=== PATIENT | female | born 1940 | race Caucasian/White ===

== ENCOUNTER → 2021-04-07 10:37 | Outpatient (CLI) | payer MEDICARE, SELFPAY ==
[2021-04-07 19:36] LABS: Hemoglobin A1C% w Est Avg Glu 5.4 % (4.0-6.0)
== END ==
PROVIDERS: PCP Family Medicine; Visit Provider Family Medicine
DX: R73.03 Prediabetes
CPT/HCPCS: 83036

== ENCOUNTER → 2021-12-27 11:09 | Outpatient (CLI) | payer MEDICARE, OTHER, SELFPAY ==
[2021-12-27 19:55] LABS: Cholesterol 275 mg/dL (140-199); HDL Cholesterol 83 mg/dL (40-60); LDL Cholesterol Calculated 175 mg/dL (<100); Triglycerides 86 mg/dL (35-150)
== END ==
PROVIDERS: PCP Physician Assistant; Visit Provider Physician Assistant
DX: E78.5 Hyperlipidemia, unspecified (principal)
CPT/HCPCS: 80061

== ENCOUNTER 2022-01-10 11:32 | Emergency (ER) | payer MEDICARE, OTHER, SELFPAY ==
[2022-01-10 11:50] VITALS: BP 132/63; PULSE 67; RESP 14; TEMP 36.8; O2SAT 95; BMI 27.1
--- NOTE | 2022-01-10 11:58 | DI.US.S_ITS ---
PROCEDURE: US PERIPH VENOUS LOW EXTREM LT INDICATIONS: swelling and pain left lower leg TECHNIQUE: Real-time imaging, as well as color and pulse Doppler interrogation, were performed of the lower extremity deep veins from the inguinal ligament to the popliteal fossa. COMPARISON: None. FINDINGS: The common femoral, femoral and popliteal veins are normally compressible, and free of intraluminal thrombus. Color and pulse Doppler demonstrate normal phasic intraluminal flow. There is normal augmentation response to distal compression maneuver. IMPRESSION: No deep venous thrombosis. Dictated by: Zohra Braga M.D. on 01/10/2022 at 12:37 Approved by: Zohra Braga M.D. on 01/10/2022 at 12:37
--- NOTE | 2022-01-10 12:01 | ED.EXTPRO ---
HPI - Extremity Problem General Chief complaint: Extremity Problem,Nontraumatic Stated complaint: Swollen left foot Time Seen by Provider: 01/10/22 11:54 Source: patient Mode of arrival: Ambulatory History of Present Illness HPI Narrative: 81-year-old female nonsmoker with history of hyperlipidemia and osteoporosis presents at the request of her primary care provider for evaluation of painful, swollen left foot in the absence of obvious injury. She has had no fever or chills, describes no calf pain, swelling or redness and no thigh pain, swelling or redness. She has no chest pain or shortness of breath. She had a surgery on her right shoulder in the end of October and is otherwise largely free of complaint. She denies any history of blood clots. She has a family member that works in an emergency room and after looking at pictures encouraged her to become evaluated Related Data Home Medications Medication Instructions Recorded Confirmed Fish Oil 1,000 mg PO QDAY ##0 07/20/11 03/22/21 GLUCOS/MSM/COLG II/C/MAN/HRB21 1 cap PO TID ##0 07/20/11 03/22/21 (Glucosamine-MSM Complex Cap) [VITAMIN D3] 1 tab PO QDAY ##0 07/20/11 03/22/21 multivitamin (Multiple Vitamins ##0 01/22/17 03/22/21 tablet) mecobalamin (vitamin B12) PO 03/09/21 03/22/21 Previous Rx's Medication Instructions Recorded cetirizine 10 mg tablet (Zyrtec) 10 mg PO DAILY PRN allergy 10/14/21 symptoms #30 tabs fluticasone propionate 50 1 spray intranasal DAILY #16 grams 10/14/21 mcg/actuation nasal spray,suspension (Flonase Allergy Relief) simvastatin 20 mg tablet 20 mg PO DAILY #90 tabs 10/14/21 cephalexin 500 mg capsule 500 mg PO Q6H 7 days #28 caps 01/10/22 Allergies Allergy/AdvReac Type Severity Reaction Status Date / Time adhesive [ADHESIVE] Allergy Severe BLISTERS/RA Verified 01/10/22 11:58 SH Penicillins [PENICILLINS] Allergy Mild UNKNOWN Verified 01/10/22 11:58 petrolatum,white Allergy Mild SKIN Verified 01/10/22 11:58 [From PETROLEUM JELLY] IRRITATION Sulfa (Sulfonamide Allergy Mild HALLUCINATI Verified 01/10/22 11:58 Antibiotics) ONS [SULFA (SULFONAMIDE ANTIBIOTICS)] Review of Systems Review of Systems Narrative: GENERAL: Denies chills, fatigue, malaise, fever, sweats. HEENT: Denies sinus pain, ear pain, sore throat, difficulty swallowing, dizziness. RESPIRATORY: Denies dyspnea, cough, wheezing, hemoptysis, sputum. CARDIOVASCULAR: Denies chest pain, palpitations, orthopnea, edema, GASTROINTESTINAL: Denies nausea, vomiting, abdominal pain, diarrhea, constipation, melena. : Denies dysuria, frequency, incontinence, hematuria, urinary retention. MUSCULOSKELETAL: See HPI SKIN: See HPI NEUROLOGIC: Denies weakness, headache, numbness, change in speech, confusion, seizures, incoordination. PSYCHIATRIC: No concerning psychosocial issues. 12 point review of systems is negative except for those stated above Patient History Medical History History of abnormal mammogram Surgical History History of knee replacement Family History Father Heart disease Grandmother Heart disease High cholesterol Mother Cancer Social History Smoking Status: Never smoker Smoking Status: Never smoker alcohol intake frequency: holidays/special occasions only Substance Use Type: does not use Exam Narrative Exam Narrative: GENERAL: [81] year old patient appears stated age. Well-developed patient, in mild distress. HEAD: Atraumatic. Normocephalic. EYES: Pupils equal round and reactive. Extraocular motions intact. No scleral icterus. No injection or drainage. ENT: Nose without bleeding, purulent drainage. Throat without erythema, tonsillar hypertrophy or exudate. Airway patent. NECK: Trachea midline. Non tender CARDIOVASCULAR: Regular rate and rhythm without murmurs, gallops, or rubs. RESPIRATORY: Clear to auscultation. Breath sounds equal bilaterally. No wheezes, rales, or rhonchi. GASTROINTESTINAL: Abdomen soft, non-tender, nondistended. EXTREMITIES: R shoulder in post operative sling. L foot with minimal swelling and warmth. NO calf pain, swelling, erythema, no medial thight pain or swelling BACK: Nontender without deformity or crepitance. No flank tenderness. NEURO: AOx3. SKIN: No rash or erythema of visible areas Initial Vital Signs Initial Vital Signs: Vital Signs Temperature 98.3 F 01/10/22 11:50 Pulse Rate 67 01/10/22 11:50 Respiratory Rate 14 01/10/22 11:50 Blood Pressure 132/63 01/10/22 11:50 Pulse Oximetry 95 01/10/22 11:50 Oxygen Delivery Method 01/10/22 11:50 Course Orders Ordered: ED Orders 01/10/22 11:58 perip venous low extrem lt Stat Vital Signs Vital signs: Vital Signs - 8 hr 01/10/22 11:50 Temperature 98.3 F Pulse Rate 67 Respiratory Rate 14 Blood Pressure 132/63 Pulse Oximetry 95 Oxygen Delivery Method Room Air Discharge Plan Departure Patient Disposition: Home Clinical Impression: Cellulitis of foot, left Instructions: DI for Cellulitis -- Adult Activity Restrictions/Additional Instructions: *You have been diagnosed with [left foot redness and swelling, no evidence of blood clot, as we discussed we will treat for infection, particularly given your recent procedures] *What to do: *Please continue to take your regular medications as directed. [ x] New medication prescriptions sent to your pharmacy: [ [facility]] [ ] New medication written as a paper prescription [ ] No new medications given *Please follow up with your primary care provider in 2-3 days, call for an appointment. Let them know you were seen in the Emergency Department and that we ask that you be seen in follow up. We will electronically transmit a record of today's note if your PCP is in our system *If you do not have a primary care provider please contact the [facility] Resource line at [phone]. They will ask some questions about your medical history and help get you set up with a doctor in the community. *Return to Emergency Department if you should have any new, worsening or concerning symptoms, such as [fever greater than 101 F, shaking chills, worsening pain, persistent vomiting or other bothersome symptoms] Prescriptions: New cephalexin 500 mg capsule 500 mg PO Q6H 7 Days Qty: 28 0RF No Action Fish Oil 1,000 mg PO QDAY Qty: 0 GLUCOS/MSM/COLG II/C/MAN/HRB21 (Glucosamine-MSM Complex Cap) 1 cap PO TID Qty: 0 [VITAMIN D3] 1 tab PO QDAY Qty: 0 multivitamin [Multiple Vitamins] tablet Qty: 0 mecobalamin (vitamin B12) PO fluticasone propionate [Flonase Allergy Relief] 50 mcg/actuation spray,suspension 1 spray intranasal DAILY Qty: 16 1RF Rx Instructions: administer into each nostril cetirizine [Zyrtec] 10 mg tablet 10 mg PO DAILY PRN (Reason: allergy symptoms) Qty: 30 2RF simvastatin 20 mg tablet 20 mg PO DAILY Qty: 90 3RF Referrals: Kian Meyer MD [Primary Care Provider] - Visit Report Forms: Patient Portal/API
[2022-01-10 13:08] VITALS: BP 141/65; PULSE 60; RESP 18; O2SAT 96
== END 2022-01-10 13:08 | disposition home or self-care (01) ==
PROVIDERS: Emergency Provider Emergency Medicine; PCP Family Medicine
DX: L03.116 Cellulitis of left lower limb (principal)
CPT/HCPCS: 93971; 99281; 99283

== ENCOUNTER → 2022-09-14 14:44 | Outpatient (CLI) | payer MEDICARE, OTHER, SELFPAY | PROVIDERS: PCP Family Medicine; Referring Provider Family Medicine; Visit Provider Family Medicine | DX: Z13.820 Encounter for screening for osteoporosis (principal); M85.851 Other specified disorders of bone density and structure, right thigh; Z78.0 Asymptomatic menopausal state; E78.5 Hyperlipidemia, unspecified; R00.1 Bradycardia, unspecified; Z87.898 Personal history of other specified conditions | CPT/HCPCS: 77080 ==

== ENCOUNTER → 2023-01-02 10:52 | Outpatient (CLI) | payer MEDICARE, OTHER, SELFPAY ==
[2023-01-02 19:53] LABS: Add Manual Diff / Slide Review NO; Basophils Absolute Auto 0 /uL (0-100); Basophils Percent Auto 0.4 % (0-2); Eosinophils Absolute Auto 500 /uL (0-450); Eosinophils Percent Auto 9.7 % (2-4); Hematocrit 39.9 % (36-46); Hemoglobin 13.4 g/dL (12.0-16.0); Lymphocytes Absolute Auto 1900 /uL (1100-4500); Lymphocytes Percent Auto 38.6 % (25-40); Mean Corpuscular HGB Conc 33.5 % (30-36); Mean Corpuscular Hemoglobin 29.6 PG (26-34); Mean Corpuscular Volume 88.5 fL (80-100); Monocytes Absolute Auto 400 /uL (0-900); Monocytes Percent Auto 7.3 % (3-14); Neutrophils Absolute Auto 2200 /uL (1500-7000); Platelet Count 221 X10^3/uL (150-400); Red Blood Cell Count 4.51 X10^6/uL (4.0-5.2); Red Cell Distribution Width 14.4 % (11.6-14.8); White Blood Cell Count 5.1 X10^3/uL (4.5-11.0)
[2023-01-02 20:08] LABS: Alanine Aminotransferase 24 IU/L (<35); Albumin 3.9 g/dL (3.5-5.0); Albumin Globulin Ratio 1.4 (1.0-2.8); Alkaline Phosphatase 62 U/L (38-126); Aspartate Aminotransferase 33 IU/L (14-36); BUN Creatinine Ratio 24.4 (6-22); Bilirubin Total 0.4 mg/dL (0.2-1.3); Blood Urea Nitrogen 20 mg/dL (7-17); Calcium 9.4 mg/dL (8.4-10.2); Carbon Dioxide 28 mmol/L (22-32); Chloride 103 mmol/L (98-107); Cholesterol 190 mg/dL (140-199); Estimated Glomerular Filt Rate > 60 mL/min (>60); Globulin 2.7 g/dL (1.7-4.1); Glucose 99 mg/dL (80-110); HDL Cholesterol 81 mg/dL (40-60); HEMOLYSIS < 15 (0-50); LDL Cholesterol Calculated 96 mg/dL (<100); Potassium 4.5 mmol/L (3.4-5.1); Sodium 137 mmol/L (137-145); Total Protein 6.6 g/dL (6.3-8.2); Triglycerides 63 mg/dL (35-150)
== END ==
PROVIDERS: PCP Family Medicine; Visit Provider Family Medicine
DX: Z87.898 Personal history of other specified conditions (principal); E78.5 Hyperlipidemia, unspecified; M81.8 Other osteoporosis without current pathological fracture; R00.1 Bradycardia, unspecified
CPT/HCPCS: 80053; 80061; 84443; 85025

== ENCOUNTER 2023-02-10 23:19 | Emergency (ER) | payer MEDICARE, OTHER, SELFPAY ==
[2023-02-10 23:37] VITALS: BP 139/66; PULSE 58; RESP 18; TEMP 36.6; O2SAT 97; BMI 24.4
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
--- NOTE | 2023-02-11 00:37 | DI.CT.S_ITS ---
PROCEDURE: CT CERVICAL SPINE WO CON INDICATIONS: trauma TECHNIQUE: Noncontrast 3 mm thick sections acquired from the skull base to the T4 level. Sagittal and coronal reformats were then constructed. For radiation dose reduction, the following was used: automated exposure control, adjustment of mA and/or kV according to patient size. COMPARISON: [facility], XR CERVICAL SPINE 2V OR 3V, 02/28/2022, 12:17. FINDINGS: Image quality: Excellent. Bones: No fractures or dislocations. Visualized superior ribs are intact. Note is made of moderately severe degenerative disc disease at C5-6, previously present. Soft tissues: Prevertebral soft tissues are normal in thickness. No paravertebral hematomas. No apical pneumothoraces. IMPRESSION: No acute trauma found, no cervical malalignment present. Moderately severe degenerative disc disease C5-6, previously present on plain film imaging 02/28/22. Dictated by: Antoine Camacho M.D. on 02/11/2023 at 1:34 Approved by: Antoine Camacho M.D. on 02/11/2023 at 1:35
--- NOTE | 2023-02-11 00:37 | DI.CT.S_ITS ---
PROCEDURE: CT HEAD/BRAIN WO CON INDICATIONS: trauma TECHNIQUE: Noncontrast 4.5 mm thick angled axial sections acquired from the foramen magnum to the vertex, with coronal and sagittal reformats. For radiation dose reduction, the following was used: automated exposure control, adjustment of mA and/or kV according to patient size. COMPARISON: None. FINDINGS: Image quality: Excellent. CSF spaces: Basal cisterns are patent. No extra-axial fluid collections. The ventricles are symmetric in size and shape. Brain: No intracranial bleeds or masses. There is cerebral volume loss for age, with resultant ventricular and sulcal prominence. There are periventricular and deep white matter chronic small vessel ischemic changes. There is intracranial internal carotid artery atherosclerosis. Skull and face: Calvarium and visualized facial bones appear intact except for previously identified bilateral nasal bone fractures, minimally displaced. Sinuses: Visualized sinuses and mastoids are clear except for a small air-fluid level within the left maxillary sinus associated with a previously identified set of bilateral nasal bone fractures.. IMPRESSION: Bilateral nasal bone fractures, no skull fracture or brain injury is seen. Dictated by: Antoine Camacho M.D. on 02/11/2023 at 1:36 Approved by: Antoine Camacho M.D. on 02/11/2023 at 1:38
[2023-02-11] MEDS: ACETAMINOPHEN 325 MG TABLET 650 MG PO (05:29)
[2023-02-11 05:32] VITALS: BP 118/72; PULSE 68; RESP 16; TEMP 36.4; O2SAT 98
== END 2023-02-11 05:34 | disposition home or self-care (01) ==
PROVIDERS: Emergency Provider Emergency Medicine; PCP Family Medicine
DX: S02.2XXA Fracture of nasal bones, initial encounter for closed fracture (principal); H11.32 Conjunctival hemorrhage, left eye; S40.012A Contusion of left shoulder, initial encounter; S05.12XA Contusion of eyeball and orbital tissues, left eye, initial encounter; V94.0XXA Hitting object or bottom of body of water due to fall from watercraft, initial encounter
CPT/HCPCS: 70450; 70486; 72125; 99283; 99284

== ENCOUNTER → 2024-05-28 15:31 | Outpatient (CLI) | payer MEDICARE, OTHER, SELFPAY ==
--- NOTE | 2024-05-28 15:37 | DI.RAD.S_ITS ---
PROCEDURE: XR KNEE RT 4V INDICATIONS: KNEE PAIN TECHNIQUE: Four views of the knee were acquired. COMPARISON: None. FINDINGS: Bones: There are no osseous abnormalities. Joints: Severe patellofemoral degeneration noted. There is moderate tibial femoral degeneration with heavy chondrocalcinosis in the tibial femoral joint including menisci and chondral cartilages. Mild lateral subluxation of patella noted.. Soft tissues: Normal IMPRESSION: Severe patellofemoral and moderate tibiofemoral degeneration. Chondrocalcinosis. Patella Obdulia and lateral subluxation of the patella. Dictated by: Buddy Renteria M.D. on 05/29/2024 at 12:11 Approved by: Buddy Renteria M.D. on 05/29/2024 at 12:13
== END ==
PROVIDERS: PCP Family Medicine; Referring Provider Orthopaedic Surgery; Visit Provider Orthopaedic Surgery
DX: S83.011A Lateral subluxation of right patella, initial encounter (principal); M11.261 Other chondrocalcinosis, right knee; M25.561 Pain in right knee
CPT/HCPCS: 73564

== ENCOUNTER → 2024-07-09 15:04 | Outpatient (CLI) | payer MEDICARE, OTHER, SELFPAY ==
--- NOTE | 2024-07-09 15:05 | DI.RAD.S_ITS ---
PROCEDURE: XR DEXA AXIAL SKELETON INDICATIONS: osteoporosis COMPARISON: [facility], CR, XR DEXA AXIAL SKELETON, 09/14/2022, 15:07. FINDINGS: Lumbar Spine: Bone mineral density 1.050 g/cm2, T score 0.0, increased by 4.3 percent. Left Hip: Bone mineral density 0.719 g/cm2, T score -1.8, decreased by 6.9 percent. Left Femoral Neck: Bone mineral density 0.556 g/cm2, T score -2.6. Right Hip: Bone mineral density 0.716 g/cm2, T score -1.9, decreased by 3.9 percent. Right Femoral Neck: Bone mineral density 0.587 g/cm2, T score -2.4. Fracture Risk Calculation (when applicable): 10-year fracture risk of a major osteoporotic fracture 20 percent and of a hip fracture 7.2 percent. (T score greater or equal to -1.0 to: NORMAL) (T score from -1.1 to -2.4: OSTEOPENIA) (T score less than or equal to -2.5: OSTEOPOROSIS) IMPRESSION: Osteoporosis by WHO classification. Follow-up guidelines as follows: Osteoporosis: Consider a repeat DEXA and Vertebral Fracture Assessment (VFA) exam in 2 years or sooner if medically necessary, to reassess this patient's status. Osteopenia: Consider a repeat DEXA in 2-3 years to reassess this patient's status, or if there is a new clinical indication. Normal: Consider a repeat DEXA in 5 years or sooner, or if there is a new clinical indication. All treatment decisions require clinical judgment and consideration of individual patient factors, including patient preferences, comorbidities, previous drug use, risk factors not captured in the FRAX model (e.g., frailty, falls, vitamin D deficiency, increased bone turnover, interval significant decline in bone density ) and possible under- or over-estimation of fracture risk by FRAX. In addition, the NOF Guide recommends that FDA-approved medical therapies be considered in postmenopausal women and men age >= 50 years with a: * Hip or vertebral (clinical or morphometric) fracture * T-score of <=-2.5 at the spine or hip * Ten-year fracture probability by FRAX of >= 3% for hip fracture or >=20% for major osteoporotic fracture. People with diagnosed cases of osteoporosis or at high risk for fracture should have regular bone mineral density tests. For patients eligible for Medicare, routine testing is allowed once every 2 years. The testing frequency can be increased to one year for patients who have rapidly progressing disease, those who are receiving or discontinuing medical therapy to restore bone mass, or have additional risk factors. Dictated by: Vlad Garcia M.D. on 07/10/2024 at 9:06 Approved by: Vlad Garcia M.D. on 07/10/2024 at 9:07
== END ==
PROVIDERS: PCP Family Medicine; Referring Provider Family Medicine; Visit Provider Family Medicine
DX: Z78.0 Asymptomatic menopausal state (principal); M81.0 Age-related osteoporosis without current pathological fracture
CPT/HCPCS: 77080

== ENCOUNTER → 2024-07-10 11:01 | Outpatient (CLI) | payer MEDICARE, OTHER, SELFPAY ==
[2024-07-10 19:49] LABS: Add Manual Diff / Slide Review NO; Basophils Absolute Auto 0 /uL (0-100); Basophils Percent Auto 0.3 % (0-2); Eosinophils Absolute Auto 400 /uL (0-450); Eosinophils Percent Auto 7.3 % (2-4); Hematocrit 39.8 % (36-46); Hemoglobin 13.2 g/dL (12.0-16.0); Lymphocytes Absolute Auto 1900 /uL (1100-4500); Lymphocytes Percent Auto 34.6 % (25-40); Mean Corpuscular HGB Conc 33.2 % (30-36); Mean Corpuscular Hemoglobin 29.9 PG (26-34); Mean Corpuscular Volume 89.8 fL (80-100); Monocytes Absolute Auto 300 /uL (0-900); Monocytes Percent Auto 6.3 % (3-14); Neutrophils Absolute Auto 2800 /uL (1500-7000); Neutrophils Percent Auto 51.5 % (50-75); Platelet Count 216 X10^3/uL (150-400); Red Blood Cell Count 4.44 X10^6/uL (4.0-5.2); Red Cell Distribution Width 14.4 % (11.6-14.8); White Blood Cell Count 5.4 X10^3/uL (4.5-11.0)
[2024-07-10 19:56] LABS: Alanine Aminotransferase 23 IU/L (<35); Albumin 3.9 g/dL (3.5-5.0); Albumin Globulin Ratio 1.5 (1.0-2.8); Alkaline Phosphatase 55 U/L (38-126); Aspartate Aminotransferase 36 IU/L (14-36); BUN Creatinine Ratio 24.7 (6-22); Bilirubin Total 0.5 mg/dL (0.2-1.3); Blood Urea Nitrogen 21 mg/dL (7-17); Calcium 9.4 mg/dL (8.4-10.2); Carbon Dioxide 27 mmol/L (22-32); Chloride 104 mmol/L (98-107); Cholesterol 200 mg/dL (140-199); Estimated Glomerular Filt Rate > 60 mL/min (>60); Globulin 2.6 g/dL (1.7-4.1); Glucose 92 mg/dL (80-110); HDL Cholesterol 88 mg/dL (40-60); HEMOLYSIS < 15 (0-50); LDL Cholesterol Calculated 100 mg/dL (<100); Potassium 4.1 mmol/L (3.4-5.1); Sodium 135 mmol/L (137-145); Total Protein 6.5 g/dL (6.3-8.2); Triglycerides 58 mg/dL (35-150)
[2024-07-10 20:21] LABS: Thyroid Stimulating Hormone 3.27 uIU/mL (0.47-4.68)
== END ==
PROVIDERS: PCP Family Medicine; Visit Provider Family Medicine
DX: E78.2 Mixed hyperlipidemia (principal); R03.0 Elevated blood-pressure reading, without diagnosis of hypertension; R73.03 Prediabetes; M81.0 Age-related osteoporosis without current pathological fracture; R48.8 Other symbolic dysfunctions
CPT/HCPCS: 80053; 80061; 82306; 84443; 85025

== ENCOUNTER → 2025-06-30 12:16 | Outpatient (CLI) | payer MEDICARE, OTHER, SELFPAY ==
--- NOTE | 2025-06-30 12:18 | DI.RAD.S_ITS ---
PROCEDURE: XR DEXA AXIAL SKELETON INDICATIONS: Menopause osteoporosis COMPARISON: [facility], CR, XR DEXA AXIAL SKELETON, 07/09/2024, 15:43. FINDINGS: Lumbar Spine: Bone mineral density 1.016 g/cm2, T score -0.3, prior T-score 0 0, decreased. -3.2%, denotes significance at 95% confidence level, LSC is 0.022 g/cm2. Left Femoral Neck: Bone mineral density 0.596 g/cm2, T score -2.3, prior T- score -2.6, increased. Left Hip: Bone mineral density 0.743 g/cm2, T score -1.6, prior T-score -1.8, increased. Fracture Risk Calculation (when applicable): 10-year fracture risk of a major osteoporotic fracture 17 percent and of a hip fracture 5.8 percent. (T score greater or equal to -1.0 to: NORMAL) (T score from -1.1 to -2.4: OSTEOPENIA) (T score less than or equal to -2.5: OSTEOPOROSIS) IMPRESSION: Osteopenia: Consider a repeat DEXA in 2-3 years to reassess this patient's status, or if there is a new clinical indication. Follow-up guidelines as follows: Osteoporosis: Consider a repeat DEXA and Vertebral Fracture Assessment (VFA) exam in 2 years or sooner if medically necessary, to reassess this patient's status. Osteopenia: Consider a repeat DEXA in 2-3 years to reassess this patient's status, or if there is a new clinical indication. Normal: Consider a repeat DEXA in 5 years or sooner, or if there is a new clinical indication. All treatment decisions require clinical judgment and consideration of individual patient factors, including patient preferences, comorbidities, previous drug use, risk factors not captured in the FRAX model (e.g., frailty, falls, vitamin D deficiency, increased bone turnover, interval significant decline in bone density ) and possible under- or over-estimation of fracture risk by FRAX. In addition, the NOF Guide recommends that FDA-approved medical therapies be considered in postmenopausal women and men age >= 50 years with a: * Hip or vertebral (clinical or morphometric) fracture * T-score of <=-2.5 at the spine or hip * Ten-year fracture probability by FRAX of >= 3% for hip fracture or >=20% for major osteoporotic fracture. Dictated by: Janis SIEGEL Interpreted: Zohra Braga MD on 06/30/2025 at 14:27 Approved by: Zohra Braga M.D. on 06/30/2025 at 16:06
== END ==
LOC: RAD 12:17
PROVIDERS: PCP Family Medicine; Referring Provider Family Medicine; Visit Provider Physician Assistant
DX: M81.0 Age-related osteoporosis without current pathological fracture (principal); Z78.0 Asymptomatic menopausal state
CPT/HCPCS: 77080